=== PATIENT | female | born 1960 | race Caucasian/White ===

== ENCOUNTER 2017-03-03 15:00 | Outpatient (CLI) | payer MEDICARE ==
--- NOTE | 2017-03-03 15:40 | RAD ---
AP AND LATERAL AND FLEXION AND EXTENSION VIEWS LUMBAR SPINE: HISTORY: Spondylosis, M47.15. FINDINGS: AP, flexion, and extension views lumbar spine are obtained. Images demonstrate disk space height loss with anterior osteophytes at the L1, L2, and L3 levels. No evidence of myriam- or retrolisthesis is seen on flexion or extension views. Vertebral bodies are u nremarkable. IMPRESSION: L1, L2, and L3 changes of spondylosis. Findings not significantly changed since the previous exam 08/13/15. POS: [facility]
--- NOTE | 2017-03-03 16:16 | MRI ---
MRI OF LUMBAR SPINE PERFORMED WITHOUT CONTRAST ENHANCEMENT: HISTORY: Low back pain, pain down both legs. COMPARISON: 08/19/15 study. The vertebral bodies are normal in height. Disk narrowing and Modic-type changes are seen at the L1- 2 and L5-S1 levels. Generalized disk desiccation changes are noted. There is no significant periaor tic adenopathy. T2 hyperintensities within the right kidney are statistically most likely tiny cysts and appear stable. T12-L1: No canal or foraminal stenosis. L1-2: Disk bulge without significant canal or foraminal stenosis. Degenerative facet changes are pr esent. L2-3: Disk bulge with facet hypertrophic changes. Borderline canal narrowing. No foraminal stenosi s. I do not see a definitive disk protrusion at this level. L3-4: Facet and ligamentous hypertrophic changes are seen with some borderline canal narrowing. No foraminal stenosis. L4-5: Degenerative facet ligamentous changes as well as some minimal disk bulge associated with some mild canal narrowing without any significant foraminal stenosis. L5-S1. There is a disk bulge present at this level. There are facet hypertrophic changes with mild bilateral foraminal narrowing. IMPRESSION: Mild bilateral foraminal narrowing at L5-S1. Borderline to minimal canal stenosis at L4-5. POS: [facility]
== END 2017-03-03 15:01 | disposition home or self-care (01) ==
LOC: TBSIIMAG 15:00
PROVIDERS: ATTEND Neurological Surgery
DX: M47.16 Other spondylosis with myelopathy, lumbar region (principal)
CPT/HCPCS: 72110; 72148

== ENCOUNTER 2017-03-24 06:02 | Inpatient (IN) | payer MEDICARE ==
[2017-03-23 13:45] VITALS: BMI 29.9
[2017-03-24] MEDS ORDERED: Fentanyl 100 MCG/2 ML VIAL ONE (06:24)
[2017-03-24] MEDS ORDERED: Sodium Chloride 0.9% 10 ML ONE (06:25)
[2017-03-24] MEDS ORDERED: Thrombin 5000 UNITS/5 ML VIAL ONE (06:25)
[2017-03-24 06:48] LABS: #Eosinphils 0.2 thou/uL (0.0-0.7); #Lymphocytes 1.3 thou/uL (1.20-3.40); #Monocytes 0.5 thou/uL (0.11-0.59); #Neutrophils 1.6 thou/uL (1.40-6.50); %Basophils 1.4 % (0.0-1.0); %Lymphocytes 36.2 % (21.0-51.0); %Monocytes 14.4 % (0.0-10.0); Hemoglobin 13.9 g/dL (12.0-16.0); Mean Corpuscular HGB CONC 32.7 g/dL (32.0-36.0); Mean Corpuscular Hemoglobin 31.2 pg (27.0-31.0); Mean Corpuscular Volume 95.3 fl (81.0-99.0); Mean Platelet Volume 6.5 fL (7.4-10.4); Platelet Count 306 thou/uL (130-400); RBC Distribution Width 11.7 % (11.5-14.5); Red Blood Cell (RBC) Count 4.46 mill/uL (4.20-5.40); White Blood Cell (WBC) Count 3.6 thou/uL (4.8-10.8)
[2017-03-24 07:06] LABS: Anion Gap 10 mmol/L (10-20); BUN (Urea Nitrogen) 16 mg/dL (9.8-20.1); Calc. Creatinine Clearance 107 mL/min (70-130); Calcium 9.7 mg/dL (7.8-10.44); Carbon Dioxide 27 mmol/L (22-29); Chloride 106 mmol/L (98-107); Estimated GFR-MDRD 80; Glucose 99 mg/dL (70-105); Sodium 139 mmol/L (136-145)
[2017-03-24] MEDS ORDERED: CEFAZOLIN/Water 2 GM/20 ML SYRINGE ONE (07:06)
[2017-03-24] MEDS ORDERED: Midazolam HCl 2 mg/2 ml Vial ONE (07:06)
[2017-03-24] MEDS ORDERED: HYDROmorphone 0.5 MG/0.5 ML SYRINGE ONE ×3 (07:56→09:16)
[2017-03-24] MEDS ORDERED: Fentanyl 250 MCG/5 ML VIAL ONE (09:00)
[2017-03-24] MEDS ORDERED: Promethazine HCl 25 MG/ML VIAL ONE (09:06)
--- NOTE | 2017-03-24 11:44 | OP ---
DATE OF SERVICE: 03/24/2017 SURGEON: Salty Lizarraga M.D. WATER POLLUTION CONTROL INSPECTOR: Melia Rahmna PA-C PROCEDURES: Left L5-S1 laminectomy, facetectomy, foraminotomy, diskectomy, posterolateral arthrodesi s, interbody arthrodesis, pedicle screw instrumentation L5-S1, demineralized bone matrix, and local m orselized autograft. PROCEDURE IN DETAIL: The patient was brought into the operating room, intubated. She was rolled in the prone position on gel-filled chest rolls. Incision was made exposing L5 and S1 bilaterally and o ur level was confirmed by x-ray. We performed left L5-S1 laminectomy, facetectomy, debrided the intr avertebral disc, and found it to be too collapsed for placement of intravertebral device. Hence, we did not attempt this. We next placed pedicle screws at L5 and S1 bilaterally using lateral fluorosco pic guidance and the positioning was confirmed with rotational x-ray. Sam was secured between the sc rews, connected by nuts, which were finally tightened. It was then extensively irrigated and immacul ate hemostasis was secured. A combination of demineralized bone matrix and local morselized autograf t was laid over the lateral surfaces for the purpose of arthrodesis. Rods were secured between the s crews, connected by nuts which were finally tightened. Immaculate hemostasis was secured. The wound was extensively irrigated. Vancomycin powder was applied and the wound was closed in anatomic layer s.
[2017-03-24] MEDS ORDERED: ePHEDrine/0.9% NaCl/PF SYRINGE 50 mg/10 ml ONE (14:44)
[2017-03-24] MEDS ORDERED: Ketorolac Tromethamine 30 MG/ML VIAL ONE (14:44)
[2017-03-24] MEDS ORDERED: Ondansetron HCl/PF 4 MG/2 ML Vial ONE (14:44)
[2017-03-24] MEDS ORDERED: Dexamethasone 20 MG/5 ML VIAL ONE (14:44)
[2017-03-24] MEDS ORDERED: Lidocaine 1% PF 5 ML VIAL ONE (14:44)
[2017-03-24] MEDS ORDERED: Metoclopramide HCl 10 MG/2 ML VIAL ONE (14:44)
[2017-03-24] MEDS ORDERED: PROPOFOL 200 MG/20 ML VIAL ONE (14:44)
[2017-03-24] MEDS ORDERED: Succinylcholine Chloride 20 MG/ML 10 ml SYRINGE FS ONE (14:44)
[2017-03-24] MEDS ORDERED: Glycopyrrolate 0.2 MG/ML 5 ML SYRINGE ONE (14:44)
--- NOTE | 2017-04-21 18:34 | EKG ---
Test Reason : PREOP Blood Pressure : / mmHG Vent. Rate : 053 BPM Atrial Rate : 053 BPM P-R Int : 158 ms QRS Dur : 078 ms QT Int : 414 ms P-R-T Axes : 050 -38 -01 degrees QTc Int : 388 ms Sinus bradycardia Left axis deviation Abnormal ECG When compared with ECG of 20-OCT-2015 23:30, QT has shortened Confirmed by DR. Precious MASCORRO ([id number]) on 04/21/2017 6:34:11 PM Referred By: LA Confirmed By:DR. Precious MASCORRO
== END 2017-03-24 11:00 | disposition home or self-care (01) | DRG 460 ==
LOC: SURG A 06:02
PROVIDERS: ADMIT Neurological Surgery; ATTEND Neurological Surgery
PROC: 0SG307J Fusion of Lumbosacral Joint with Autologous Tissue Substitute, Posterior Approach, Anterior Column, Open Approach (ICD-10-PCS; principal; 2017-03-24)
PROC: 0SB40ZZ Excision of Lumbosacral Disc, Open Approach (ICD-10-PCS; 2017-03-24)
DX: M54.16 Radiculopathy, lumbar region (principal); F17.210 Nicotine dependence, cigarettes, uncomplicated; M51.36 Other intervertebral disc degeneration, lumbar region; F31.9 Bipolar disorder, unspecified
CPT/HCPCS: 36415; 76001; 80048; 85025; 93005; 93010; 96374; A4216; C1713; C1768; J0131; J1100; J1170; J1885; J2001; J2250; J2405; J2550; J2704; J2765; J3010; J3370; J3490

== ENCOUNTER 2017-04-07 15:37 | Outpatient (CLI) | payer MEDICARE ==
--- NOTE | 2017-04-07 16:43 | RAD ---
LUMBAR SPINE TWO VIEW 04/07/17 HISTORY: Surgery followup. COMPARISON: Lumbar spine radiograph 03/03/17. FINDINGS: There is new posterior spinal fusion hardware at L5-S1. No evidence for hardware complication. No sig nificant listhesis. No acute fracture or malalignment. IMPRESSION: Satisfactory appearance of posterior fusion L5-S1 hardware. POS: [facility]
== END 2017-04-07 15:38 | disposition home or self-care (01) ==
LOC: TBSIIMAG 15:37
PROVIDERS: ATTEND Physician Assistant
DX: M54.9 Dorsalgia, unspecified (principal); Z98.1 Arthrodesis status
CPT/HCPCS: 72100

== ENCOUNTER 2017-07-19 07:05 | Day surgery (SDC) | payer MEDICARE ==
[2017-07-18 14:10] VITALS: BMI 29.9
[2017-07-19 07:51] VITALS: BP 125/87; TEMP 97.8
--- NOTE | 2017-07-19 10:06 | RAD ---
CERVICAL MYELOGRAM: History Cervical radiculopathy. Previous cervical fusion. COMPARISON: None. EXPOSURE: 1.1 minutes. 765.9 mGy*^m2. FINDINGS: Cervical spine ware server radiograph demonstrates an anterior fusion plate with a transvertebral body scre w at C5, C6, and C7. Disk prosthesis at C5-C6 and C6-C7. Anterolisthesis of C4 upon C5. No prevert ebral soft tissue swelling. There are degenerative changes in the left facet at multiple levels best demonstrated on the AP projection. Successful lumbar puncture for intrathecal contrast administration. A total of 8 cc of Isovue 300M c ontrast was administered intrathecally. The patient tolerated the procedure well. No immediate or p ostprocedure complication. TECHNIQUE: Consent was obtained to perform a lumbar puncture for intrathecal contrast administration. The patie nt's back was evaluated. The L1-L2 level was deemed appropriate. The skin was prepped and draped in sterile fashion. 1% Lidocaine, buffered with sodium bicarbonate, was used for local anesthesia. Un diana fluoroscopic guidance, a 22-gauge spinal needle was advanced to the CSF space. A total of 8 cc o f Isovue-M300 contrast was administered intrathecally. The patient tolerated the procedure well. No immediate or postprocedure compilations. IMPRESSION: Successful lumbar puncture for intrathecal contrast administration. Please refer to post-myelogram c ervical spine CT for further details. POS: [facility]
--- NOTE | 2017-07-19 10:14 | CT ---
POST MYELOGRAM CERVICAL SPINE CT: HISTORY: Cervical radiculopathy. Cervical fusion. COMPARISON: None. TECHNIQUE: Post myelogram cervical spine CT is performed in the axial plane. Reformatted images are submitted f or interpretation. FINDINGS: Anterior fusion changes at C5, C6, and C7. No perihardware lucency involving the screws at C5, C6, a nd C7. The anterior fusion plate is flush against the C5 through C7 vertebral bodies. Prostheses at the C5-C6 and C6-C7 disk spaces. There is 3 mm of anterolisthesis of C3 upon C4. There is 2 mm of anterolisthesis of C4 upon C5. The re is no prevertebral soft tissue swelling. The visualized soft tissue neck structures are unremarka ble. No masses in the oral cavity. Symmetric attenuation of the parotid and submandibular glands. The sternocleidomastoid muscle is unr emarkable. No evidence of lymphadenopathy by size criteria. Cervical spine vertebral body height is maintained. No fracture. The lateral masses of C1 and C2 ar ticulate appropriately. The odontoid process is intact. The upper mediastinum and lung apices are unremarkable. C2-C3: No significant central canal stenosis. The neural foramina are patent bilaterally. C3-C4: No significant central canal stenosis. The right and left neural foramina are patent. C4-C5: No significant disk osteophyte complex. No significant central canal stenosis. The foramina are patent. C5-C6: No significant central canal stenosis. Minimal bilateral foraminal narrowing. C6-C7: No significant central canal stenosis. Mild bilateral foraminal narrowing. C7-T1: No significant central canal stenosis. Bilaterally, the neural foramina are patent. IMPRESSION: 1. Cervical fusion changes, as described above. No evidence of perihardware lucency. 2. Grade 1 anterolisthesis of C3 upon C4 and C4 upon C5. 3. No evidence of high grade central canal stenosis or high grade foraminal narrowing. POS: [facility]
[2017-07-19] MEDS ORDERED: Iopamidol-M 300 61% 15 ML VIAL ONE (15:08)
== END 2017-07-19 09:55 | disposition home or self-care (01) ==
LOC: RAD 07:05
PROVIDERS: ATTEND Neurological Surgery
PROC: B00B1ZZ Plain Radiography of Spinal Cord using Low Osmolar Contrast (ICD-10-PCS; principal; 2017-07-19)
DX: M54.12 Radiculopathy, cervical region (principal); Z91.018 Allergy to other foods; Z91.013 Allergy to seafood
CPT/HCPCS: 62302; 72126

== ENCOUNTER 2017-08-15 08:22 | Inpatient (IN) | payer MEDICARE ==
[2017-08-12 11:23] VITALS: BMI 29.9
[2017-08-15] MEDS ORDERED: CEFAZOLIN/Water 2 GM/20 ML SYRINGE ONE (09:45)
[2017-08-15] MEDS ORDERED: Midazolam HCl 2 mg/2 ml Vial ONE ×2 (09:46→10:00)
[2017-08-15 09:52] LABS: Hemoglobin 14.7 g/dL (12.0-16.0); Mean Corpuscular Hemoglobin 31.4 pg (27.0-31.0); Mean Corpuscular Volume 92.1 fl (81.0-99.0); Mean Platelet Volume 5.9 fL (7.4-10.4); Platelet Count 276 thou/uL (130-400); RBC Distribution Width 11.7 % (11.5-14.5); Red Blood Cell (RBC) Count 4.68 mill/uL (4.20-5.40); White Blood Cell (WBC) Count 3.5 thou/uL (4.8-10.8)
[2017-08-15] MEDS ORDERED: Fentanyl 250 MCG/5 ML VIAL ONE (10:00)
[2017-08-15] MEDS ORDERED: Bacitracin Zinc Ointment 30 gm TUBE ONE (10:04)
[2017-08-15] MEDS ORDERED: Sodium Chloride 0.9% 10 ML ONE (10:04)
[2017-08-15 10:18] LABS: Anion Gap 13 mmol/L (10-20); BUN (Urea Nitrogen) 11 mg/dL (9.8-20.1); Calc. Creatinine Clearance 108 mL/min (70-130); Calcium 9.3 mg/dL (7.8-10.44); Carbon Dioxide 22 mmol/L (22-29); Chloride 109 mmol/L (98-107); Estimated GFR-MDRD 81; Glucose 92 mg/dL (70-105); Potassium 3.9 mmol/L (3.5-5.1); Sodium 140 mmol/L (136-145)
--- NOTE | 2017-08-15 13:03 | OP ---
DATE OF PROCEDURE: 08/15/2017 SURGEON: Salty Lizarraga M.D. PONY ROLL FINISHER: Ramirez Interiano PROCEDURE: Removal of hardware C5-C7, exploration of spinal fusion C5-C7, anterior cervical discecto my C4-5, anterior titanium instrumentation C4 through C7, intervertebral device biomechanical, local morselized autograft, demineralized bone matrix C4-5. Posterior approach C4 through C7 posterolateral arthrodesis, lateral mass screw instrumentation, umm neralized bone matrix, local morselized autograft C4-C7. PROCEDURE IN DETAIL: The patient was brought into the operating room and intubated. She was positio serafin supine in modest extension on a gel-filled donut. The previous incision was reopened. The previ ous plate was identified and removed. The spinal fusion was explored and did not seem to be solid. We next placed distraction across C4-5 removed the intravertebral disc entirely for decompression and prepared the bony endplates for the purpose of arthrodesis. An appropriately sized intravertebral b iomechanical PEEK device was brought into the field, filled with demineralized bone matrix, local mor selized autograft, and tapped into place securely at C4-5. Next, an anterior plate was brought in th e field and secured to C4, C5, C6, and C7 using 2 fixed 14-mm screws at each level. The wound was ex tensively irrigated, immaculate hemostasis was secured, and the wound was closed in anatomic layers o al a drain. The patient was then rolled in the prone position on gel-filled chest rolls with the head fixed in ne utral position in the allie headholder. A midline incision was made exposing C4 through C7 and our level was confirmed by x-ray. We placed right C4, C5, C6 and C7 lateral mass screws connected them b y a long ramirez, secured by nuts which were tightened. The wound was extensively irrigated, immaculate hemostasis was secured. The left laminar surfaces were prepared for the purpose of arthrodesis and a combination of demineralized bone matrix, local morselized autograft was laid over these surfaces fo r the purpose of arthrodesis. Vancomycin powder was applied and the wound was then closed in anatomi c layers.
[2017-08-15] MEDS ORDERED: HYDROmorphone 0.5 MG/0.5 ML SYRINGE ONE ×2 (13:09→14:00)
[2017-08-15] MEDS ORDERED: Ketorolac Tromethamine 30 MG/ML VIAL ONE (13:20)
[2017-08-15] MEDS ORDERED: Fentanyl 100 MCG/2 ML VIAL ONE ×2 (13:20→13:47)
[2017-08-15] MEDS ORDERED: Ondansetron HCl/PF 4 MG/2 ML Vial IVP PRN ×2 (13:21→15:20)
[2017-08-15] MEDS ORDERED: Promethazine HCl 25 MG/ML VIAL SLOW IVP PRN (13:21)
[2017-08-15] MEDS ORDERED: Promethazine HCl 25 MG/ML VIAL IM PRN ×2 (13:21→15:20)
[2017-08-15] MEDS ORDERED: HYDROmorphone 2 MG/ML VIAL SLOW IVP PRN (13:21)
[2017-08-15] MEDS ORDERED: Dexamethasone 20 MG/5 ML VIAL ONE (13:32)
[2017-08-15] MEDS ORDERED: Glycopyrrolate 0.2 MG/ML 5 ML SYRINGE ONE (13:32)
[2017-08-15] MEDS ORDERED: Lidocaine 1% PF 5 ML VIAL ONE (13:32)
[2017-08-15] MEDS ORDERED: PHENYLEPHRINE-NS 100 MCG/ML 10 ML SYRINGE ONE (13:32)
[2017-08-15] MEDS ORDERED: PROPOFOL 200 MG/20 ML VIAL ONE (13:32)
[2017-08-15] MEDS ORDERED: Ondansetron HCl/PF 4 MG/2 ML Vial ONE (13:32)
[2017-08-15] MEDS ORDERED: Promethazine HCl 12.5 MG SUPP PR PRN (15:20)
[2017-08-15] MEDS ORDERED: Acetaminophen 325 MG TAB PO PRN (15:20)
[2017-08-15] MEDS ORDERED: diphenhydrAMINE 50 MG/ML VIAL IVP PRN (15:20)
[2017-08-15] MEDS ORDERED: Promethazine 25 MG TAB PO PRN (15:20)
[2017-08-15] MEDS ORDERED: Acetaminophen 650 MG Suppository PR PRN (15:20)
[2017-08-15] MEDS ORDERED: HYDROcodone/Acetaminophen 10/325 mg Tablet PO PRN ×2 (15:20→16:07)
[2017-08-15] MEDS ORDERED: diphenhydrAMINE 25 MG CAP PO PRN (15:20)
[2017-08-15] MEDS ORDERED: Mag-Al 1200 mg/1200 mg/30 ML UDCUP PO PRN (15:20)
[2017-08-15] MEDS ORDERED: Milk Of Magnesia 30 ML UDCUP PO PRN (15:20)
[2017-08-15] MEDS: tiZANidine HCl 4 MG TAB PO PRN (15:47)
[2017-08-15] MEDS: Sodium Chloride 0.9% 1,000 ML IV SCH (15:47)
[2017-08-15] MEDS ORDERED: Mometasone/Formoterol 120 PUFF INHALER INH PRN (15:52)
[2017-08-15] MEDS ORDERED: SUMAtriptan Succinate 50 MG TAB PO PRN (15:52)
[2017-08-15] MEDS ORDERED: PROVENTIL INHALER 6.7 G (200 INHALATIONS) INH PRN (15:59)
[2017-08-15] MEDS: Bupropion 150 MG SR TAB PO SCH ×2 (16:41→20:07)
[2017-08-15] MEDS: clonazePAM 0.5 MG TAB PO SCH ×2 (16:41→20:07)
[2017-08-15] MEDS: CEFAZOLIN/Water 2 GM/20 ML SYRINGE SLOW IVP SCH (19:41)
[2017-08-15] MEDS: lamoTRIgine 100 MG TAB PO SCH (20:07)
[2017-08-15] MEDS: Cyclobenzaprine 10 MG TAB PO PRN (22:31)
[2017-08-16] MEDS: HYDROcodone/Acetaminophen 10/325 mg Tablet PO PRN ×6 (00:04→23:47)
[2017-08-16] MEDS: CEFAZOLIN/Water 2 GM/20 ML SYRINGE SLOW IVP SCH ×3 (01:15→17:32)
[2017-08-16] MEDS: Sodium Chloride 0.9% 1,000 ML IV SCH ×2 (04:31→17:31)
[2017-08-16] MEDS: tiZANidine HCl 4 MG TAB PO PRN (06:45)
--- NOTE | 2017-08-16 07:08 | PRG ---
DATE OF SERVICE: 08/16/2017 The patient is postop day #1 for removal of hardware, C4-C5 ACDF, posterior C4-C7 fusion. Overnight, the patient had difficulty with pain control. She reports she was given two 10/325 [employer] p.o. this morning and this has helped significantly. She is also getting a muscle relaxer and p.r.n. IV morphine. She has no focal motor weakness on my exam. No dysesthesias or sensation. Her dressi ngs are dry. FELICITA drain anteriorly put out 27 mL last night. We will remove it this morning. We will plan to continue with pain control and work on mobilizing the patient as well as advancing her diet.
[2017-08-16] MEDS: Venlafaxine HCl XR 75 MG CAP PO SCH (08:54)
[2017-08-16] MEDS: clonazePAM 0.5 MG TAB PO SCH ×3 (08:54→21:12)
[2017-08-16] MEDS: Loratadine 10 MG TAB PO SCH (08:54)
[2017-08-16] MEDS: Bupropion 150 MG SR TAB PO SCH ×3 (08:54→21:16)
[2017-08-16] MEDS: Fluticasone Propionate Nasal Spray 16 gm Bottle NASAL SCH (10:03)
[2017-08-16] MEDS: lamoTRIgine 100 MG TAB PO SCH ×2 (10:03→21:12)
[2017-08-16] MEDS: Cyclobenzaprine 10 MG TAB PO PRN ×2 (10:59→21:12)
[2017-08-16] MEDS ORDERED: Morphine 4 MG/ML VIAL IV PRN ×2 (12:44→12:45)
[2017-08-17] MEDS: CEFAZOLIN/Water 2 GM/20 ML SYRINGE SLOW IVP SCH ×3 (02:13→17:11)
[2017-08-17] MEDS: HYDROcodone/Acetaminophen 10/325 mg Tablet PO PRN ×3 (05:28→18:06)
[2017-08-17] MEDS: tiZANidine HCl 4 MG TAB PO PRN ×3 (05:29→18:07)
[2017-08-17] MEDS: Sodium Chloride 0.9% 1,000 ML IV SCH ×2 (06:47→19:53)
[2017-08-17] MEDS ORDERED: Polyethylene Glycol 3350 17 GM Packet PO PRN (08:45)
[2017-08-17] MEDS: lamoTRIgine 100 MG TAB PO SCH ×2 (09:05→20:56)
[2017-08-17] MEDS: clonazePAM 0.5 MG TAB PO SCH ×3 (09:05→20:57)
[2017-08-17] MEDS: Bupropion 150 MG SR TAB PO SCH ×3 (09:05→20:56)
[2017-08-17] MEDS: Loratadine 10 MG TAB PO SCH (09:05)
[2017-08-17] MEDS: Venlafaxine HCl XR 75 MG CAP PO SCH (09:05)
[2017-08-17] MEDS: Fluticasone Propionate Nasal Spray 16 gm Bottle NASAL SCH (09:07)
--- NOTE | 2017-08-17 11:25 | PRG ---
DATE OF SERVICE: 08/17/2017 The patient is postoperative day #2 anterior and posterior decompression and fusion for cervical sten osis. She continues to have pain control issues, but this is gradually improving in time. She has b een tolerating a regular diet, voiding appropriately and ambulated some in the department. She is co mplaining of constipation issues and I will add MiraLax to her regimen. At this time, we will plan t o continue to monitor and work on pain control additional night in the hospital, but I anticipate rocky t the patient will be discharged home in the next day or two.
[2017-08-18] MEDS: tiZANidine HCl 4 MG TAB PO PRN (00:03)
[2017-08-18] MEDS: HYDROcodone/Acetaminophen 10/325 mg Tablet PO PRN ×2 (00:03→07:29)
[2017-08-18] MEDS: CEFAZOLIN/Water 2 GM/20 ML SYRINGE SLOW IVP SCH ×2 (02:18→10:00)
[2017-08-18] MEDS: Venlafaxine HCl XR 75 MG CAP PO SCH (09:56)
[2017-08-18] MEDS: Fluticasone Propionate Nasal Spray 16 gm Bottle NASAL SCH (09:57)
[2017-08-18] MEDS: Bupropion 150 MG SR TAB PO SCH (09:57)
[2017-08-18] MEDS: Loratadine 10 MG TAB PO SCH (09:57)
[2017-08-18] MEDS: clonazePAM 0.5 MG TAB PO SCH (09:57)
[2017-08-18] MEDS: lamoTRIgine 100 MG TAB PO SCH (09:57)
[2017-08-18] MEDS: Sodium Chloride 0.9% 1,000 ML IV SCH (09:59)
[2017-08-18 11:26] VITALS: BP 119/80; TEMP 98.7
--- NOTE | 2017-08-18 15:00 | DIS ---
DATE OF ADMISSION: 08/15/2017 DATE OF DISCHARGE: 08/18/2017 ADMISSION DIAGNOSES: Cervical spondylosis with myelopathy and radiculopathy. DISCHARGE DIAGNOSES: Cervical spondylosis with myelopathy and radiculopathy. SURGICAL PROCEDURE: Anterior and posterior cervical diskectomy and fusion from C4 to C7. HOSPITAL COURSE: The patient was admitted on 08/15/2017 for the purpose of undergoing the above-name d procedure. She tolerated the procedure well and had an inordinate amount of initial postoperative pain with the patient on pain medication for quite some time preoperatively. We were able to control her pain with the use of morphine and intermittent Verdi. She had FELICITA drains placed intraoperatively and these were removed by the second postoperative day. On third postoperative day, the patient was ambulating well, was tolerating diet. She continued to have discomfort primarily at the posterior a spect of the cervical spine, which seen more muscular incisional in nature. Her examination overall maintained stability. The patient and her were doing quite well and felt like she could be d ischarged home on 08/18/2017. The patient was tolerating diet and activity and voiding without diffi culty. Pain medication was tolerated by mouth. The patient will be sent home on Verdi, Zanaflex, an d antibiotic. All postop instructions were given. The patient expressed understanding. She will be discharged home today to follow up with us in about 2 weeks.
== END 2017-08-18 12:28 | disposition home or self-care (01) | DRG 455 ==
LOC: SURG B 08:22
PROVIDERS: ADMIT Neurological Surgery; ATTEND Neurological Surgery
PROC: 0RG20A0 Fusion of 2 or more Cervical Vertebral Joints with Interbody Fusion Device, Anterior Approach, Anterior Column, Open Approach (ICD-10-PCS; principal; 2017-08-15)
PROC: 0RG2071 Fusion of 2 or more Cervical Vertebral Joints with Autologous Tissue Substitute, Posterior Approach, Posterior Column, Open Approach (ICD-10-PCS; 2017-08-15)
PROC: 0RB30ZZ Excision of Cervical Vertebral Disc, Open Approach (ICD-10-PCS; 2017-08-15)
PROC: 0PP304Z Removal of Internal Fixation Device from Cervical Vertebra, Open Approach (ICD-10-PCS; 2017-08-15)
PROC: 3E0U0GB Introduction of Recombinant Bone Morphogenetic Protein into Joints, Open Approach (ICD-10-PCS; 2017-08-15)
DX: M96.0 Pseudarthrosis after fusion or arthrodesis (principal); M47.22 Other spondylosis with radiculopathy, cervical region; G89.18 Other acute postprocedural pain; Y83.8 Other surgical procedures as the cause of abnormal reaction of the patient, or of later complication, without mention of misadventure at the time of the procedure; F32.9 Major depressive disorder, single episode, unspecified; F41.9 Anxiety disorder, unspecified
CPT/HCPCS: 36415; 76001; 80048; 85027; 93005; 93010; A4216; C1713; C1768; C1776; G8978-GP-CJ; G8979-GP-CI; J0131; J1100; J1170; J1885; J2001; J2250; J2270; J2405; J2704; J3010; J3370; J3490

== ENCOUNTER 2017-08-30 10:28 | Emergency (ER) | payer MEDICARE ==
[2017-08-30] MEDS ORDERED: HYDROcodone/Acetaminophen 10/325 mg Tablet ONE (12:15)
[2017-08-30] MEDS ORDERED: Ondansetron ODT 4 MG TAB ONE (12:16)
--- NOTE | 2017-08-30 14:03 | RAD ---
THREE VIEWS CERVICAL SPINE: DATE: 08/30/17. HISTORY: Neck and right shoulder pain for 2 days. History of neck surgery. COMPARISON: CT cervical spine on 07/19/17. FINDINGS: Postsurgical changes of the cervical spine are noted with interval revision of postsurgical changes r elated to the anterior cervical fusion noted on the prior CT exam and there is now an anterior plate and screws transfixing the C4, C5, C6, and C7 levels. There is also evidence of posterior fusion uni laterally on the right at this level with pedicular screws and transfixed by posterior ramirez. Intradis beryl prosthesis at the C4-5 level is present. There is stable slight anterolisthesis of C2 on C3 and to a slightly greater degree at C4-5 level als o noted on prior CT exam. Skin clips are seen posterior to the cervical spine. The cervicothoracic junction is obscured on thi s exam due to overlying structures. Prevertebral soft tissues are within normal limits. IMPRESSION: 1. Interval revision of postsurgical changes involving the cervical spine with evidence of anterior as well as posterior fusion of the C4 through C7 levels. 2. Stable anterolisthesis of C2 on C3 and C3 on C4. POS: [facility]
== END 2017-08-30 14:10 | disposition home or self-care (01) ==
LOC: ERS 10:28
DX: G89.18 Other acute postprocedural pain (principal); K21.9 Gastro-esophageal reflux disease without esophagitis; G43.909 Migraine, unspecified, not intractable, without status migrainosus; F31.9 Bipolar disorder, unspecified; F41.9 Anxiety disorder, unspecified; K58.9 Irritable bowel syndrome, unspecified; Z87.891 Personal history of nicotine dependence; Z79.899 Other long term (current) drug therapy
CPT/HCPCS: 72040; 96372; J2270; Q0162

== ENCOUNTER 2018-01-02 10:14 | Outpatient (CLI) | payer OTHER | END 2018-01-02 10:15 | disposition home or self-care (01) | LOC: DTY/OP 10:14 | PROVIDERS: ATTEND Surgery | DX: E66.01 Morbid (severe) obesity due to excess calories (principal) | CPT/HCPCS: 97802 ==

== ENCOUNTER 2018-01-04 11:30 | Inpatient (IN) | payer OTHER ==
[2018-01-16] MEDS ORDERED: Heparin 5,000 UNITS/ML VIAL ONE (10:38)
[2018-01-16] MEDS ORDERED: CEFAZOLIN 2 GM/50 ML BAG ONE (10:39)
[2018-01-16] MEDS ORDERED: Bupivacaine/Epinephrine 0.25% 30 ML VIAL ONE ×2 (11:34)
[2018-01-16] MEDS ORDERED: Fentanyl 250 MCG/5 ML VIAL ONE (11:42)
[2018-01-16] MEDS ORDERED: Midazolam HCl 2 mg/2 ml Vial ONE (12:17)
[2018-01-16] MEDS ORDERED: Promethazine HCl 25 MG/ML VIAL SLOW IVP PRN ×2 (13:57→15:18)
[2018-01-16] MEDS ORDERED: Promethazine HCl 25 MG/ML VIAL IM PRN ×4 (13:57→17:21)
[2018-01-16] MEDS ORDERED: Ondansetron HCl/PF 4 MG/2 ML Vial IVP PRN ×2 (13:57→15:18)
[2018-01-16] MEDS ORDERED: Fentanyl 100 MCG/2 ML VIAL ONE (14:23)
[2018-01-16] MEDS ORDERED: Promethazine HCl 25 MG/ML VIAL ONE (14:24)
[2018-01-16] MEDS ORDERED: HYDROmorphone 2 MG/ML VIAL ONE (14:49)
[2018-01-16] MEDS ORDERED: Lidocaine 1% PF 5 ML VIAL ONE (15:04)
[2018-01-16] MEDS ORDERED: PHENYLEPHRINE-NS 100 MCG/ML 10 ML SYRINGE ONE (15:04)
[2018-01-16] MEDS ORDERED: Glycopyrrolate 0.2 MG/ML 5 ML SYRINGE ONE (15:04)
[2018-01-16] MEDS ORDERED: Ondansetron PF 4 MG/2 ML Vial ONE (15:04)
[2018-01-16] MEDS ORDERED: PROPOFOL 200 MG/20 ML VIAL ONE (15:04)
[2018-01-16] MEDS ORDERED: HYDROmorphone 2 MG/ML VIAL SLOW IVP PRN (15:18)
[2018-01-16] MEDS ORDERED: Ondansetron PF 4 MG/2 ML Vial IVP PRN ×2 (15:18→17:21)
[2018-01-16] MEDS ORDERED: fentaNYL Citrate/PF 2,000 MCG in Sodium Chloride 0.9% 60 ML IV PRN (15:18)
[2018-01-16] MEDS ORDERED: Naloxone HCl 0.4 mg/ml Vial IV PRN (15:18)
[2018-01-16] MEDS ORDERED: diphenhydrAMINE 50 MG/ML VIAL IVP PRN ×2 (15:18→17:21)
[2018-01-16] MEDS ORDERED: Zolpidem Tartrate 5 MG TAB PO PRN (15:18)
[2018-01-16] MEDS ORDERED: diphenhydrAMINE 50 MG/ML VIAL IM PRN (15:18)
[2018-01-16] MEDS ORDERED: hydrALAZINE 20 MG/ML VIAL ONE (15:19)
[2018-01-16] MEDS ORDERED: Communication Order-Pharmacy FS SCH (15:30)
[2018-01-16] MEDS ORDERED: Dextrose 50% Abboject 50 ML SYRINGE SLOW IVP PRN (17:21)
[2018-01-16] MEDS ORDERED: Hydrocodone-Acetamin 15 ML UDCUP PO PRN (17:21)
[2018-01-16] MEDS ORDERED: PROVENTIL INHALER 6.7 G (200 INHALATIONS) INH PRN ×2 (17:21→20:37)
[2018-01-16] MEDS ORDERED: Dextrose 5% in Water 1,000 ML IV PRN (17:21)
[2018-01-16] MEDS ORDERED: Mometasone/Formoterol 120 PUFF INHALER INH PRN ×2 (17:21→20:42)
[2018-01-16] MEDS ORDERED: hydrALAZINE 20 MG/ML VIAL SLOW IVP PRN (17:21)
[2018-01-16] MEDS: Acetaminophen 1,000 MG in Premix Bag 1 BAG IVPB SCH ×2 (18:36→23:12)
[2018-01-16] MEDS: diphenhydrAMINE 25 MG CAP PO PRN (19:51)
[2018-01-16] MEDS ORDERED: Simethicone Chewable 80 MG TAB PO PRN (20:33)
[2018-01-16] MEDS ORDERED: SUMAtriptan Succinate 50 MG TAB PO PRN (20:42)
[2018-01-16] MEDS ORDERED: lamoTRIgine 100 MG TAB PO SCH (21:00)
[2018-01-16] MEDS ORDERED: Enoxaparin Sodium 40 MG/0.4 ML SYRINGE SC SCH (21:00)
[2018-01-16] MEDS ORDERED: Loratadine 10 MG TAB PO SCH (21:00)
[2018-01-16] MEDS: clonazePAM 0.5 MG TAB PO SCH (21:17)
[2018-01-16] MEDS: Bupropion 150 MG SR TAB PO SCH (21:17)
[2018-01-16] MEDS: lamoTRIgine 100 MG TAB PO SCH (21:18)
[2018-01-16] MEDS: D5 1/2 NS w/20 mEq KCL 1,000 ML IV SCH (21:22)
[2018-01-17] MEDS: D5 1/2 NS w/20 mEq KCL 1,000 ML IV SCH (01:09)
[2018-01-17] MEDS: Acetaminophen 1,000 MG in Premix Bag 1 BAG IVPB SCH ×2 (05:06→11:48)
[2018-01-17 06:12] LABS: #Lymphocytes 0.6 thou/uL (1.20-3.40); #Monocytes 0.5 thou/uL (0.11-0.59); #Neutrophils 6.7 thou/uL (1.40-6.50); %Basophils 0.1 % (0.0-1.0); %Eosinophils 0.1 % (0.0-10.0); %Lymphocytes 8.1 % (21.0-51.0); %Monocytes 6.3 % (0.0-10.0); %Neutrophils 85.4 % (42.0-75.0); Hemoglobin 13.9 g/dL (12.0-16.0); Mean Corpuscular HGB CONC 33.1 g/dL (32.0-36.0); Mean Corpuscular Hemoglobin 31.2 pg (27.0-31.0); Mean Corpuscular Volume 94.3 fL (78.0-98.0); Mean Platelet Volume 6.9 fL (7.4-10.4); Platelet Count 286 thou/uL (130-400); RBC Distribution Width 11.5 % (11.5-14.5); Red Blood Cell (RBC) Count 4.46 mill/uL (4.20-5.40); White Blood Cell (WBC) Count 7.8 thou/uL (4.8-10.8)
[2018-01-17 06:15] LABS: Anion Gap 11 mmol/L (10-20); BUN (Urea Nitrogen) 9 mg/dL (9.8-20.1); Calc. Creatinine Clearance 125 mL/min (70-130); Calcium 8.8 mg/dL (7.8-10.44); Carbon Dioxide 25 mmol/L (22-29); Chloride 103 mmol/L (98-107); Estimated GFR-MDRD Greater than 90; Glucose 145 mg/dL (70-105); Potassium 3.9 mmol/L (3.5-5.1); Sodium 135 mmol/L (136-145)
[2018-01-17 06:36] VITALS: BMI 30.1
[2018-01-17] MEDS: diphenhydrAMINE 25 MG CAP PO PRN (07:42)
[2018-01-17] MEDS: clonazePAM 0.5 MG TAB PO SCH (08:58)
[2018-01-17] MEDS: Bupropion 150 MG SR TAB PO SCH (08:59)
[2018-01-17] MEDS ORDERED: Escitalopram Oxalate 10 mg Tablet PO SCH ×2 (09:00)
[2018-01-17] MEDS ORDERED: Pantoprazole 40 MG VIAL IVP SCH (09:00)
[2018-01-17] MEDS ORDERED: Fluticasone Propionate Nasal Spray 16 gm Bottle NASAL SCH (09:00)
[2018-01-17] MEDS: lamoTRIgine 100 MG TAB PO SCH (11:18)
--- NOTE | 2018-01-17 11:44 | DIS ---
DATE OF ADMISSION: January 16, 2018 DATE OF DISCHARGE: January 17, 2018 ADMITTING DIAGNOSIS: Morbid obesity. DISCHARGE DIAGNOSIS: Morbid obesity. PROCEDURES: Laparoscopic sleeve gastrectomy by Dr. Waldrop without complication. CONDITION AT DISCHARGE: Improved. STAFF: Dr. Waldrop. HOSPITAL COURSE: On postop day #1, the patient is doing well. She is tolerating the liquid diet wit hout difficulty. She is ambulatory. No significant pain, tachycardia, fever. ASSESSMENT: Discharge to home. Follow up with me in 2 weeks. All other education was previously do ne with the bariatric program.
[2018-01-17 11:56] VITALS: BP 118/79; TEMP 97.8
--- NOTE | 2018-01-18 13:31 | OP ---
DATE OF PROCEDURE: 01/16/2018 PREOPERATIVE DIAGNOSIS: Morbid obesity with a body mass index of 34. POSTOPERATIVE DIAGNOSIS: Morbid obesity with a body mass index of 34. PROCEDURE: Laparoscopic sleeve gastrectomy with [place] staple line reinforcements and 38-[place] bougie . SURGEON: Singh Waldrop M.D. ANESTHESIA: General. ESTIMATED BLOOD LOSS: Minimal. COMPLICATIONS: None. SPECIMEN: Stomach. TECHNIQUE: The patient was taken to the operating room and placed supine on the table. After genera l anesthetic was obtained, arms and legs were double-strapped to bariatric table. The abdomen was pr epped and draped in a sterile fashion. Left subcostal 5-mm Optiview trocar was placed in usual fashi on. High-flow pneumoperitoneum was obtained. Left and right abdominal 12-mm ports as well as the [facility] subcostal 5-mm port were placed under direct visualization. A 5-mm incision made at the xiphoid and the Dayana was used to raise the liver off the GE junction. Short gastrics were taken down to a distance of 6 cm proximal to the pylorus all the way to the angle of His. Angle of His, posterior fundus, and left moy was completely dissected. Short gastrics were taken down to a distance of 5 c m proximal to the pylorus. OG tube was removed and 38-bougie was brought in and its tip left in the antrum of the stomach. Multiple loads of an [place] stapling device was used to form the sleeve. Th e first fired up a distance of 6 cm proximal to the pylorus angled up towards the incisura. Multiple loads were then fired up along the incisura, stomach was completely transected at the angle of His. There was larger than normal crural defect that was closed using #1 interrupted Ethibond with the ti e knot system. There was no bleeding on the staple line. All port sites were infiltrated using loca l anesthetic. The stomach was removed from left abdominal incision. This fascial defect was closed using GraNee needle 0 Vicryl tie. Bougie was removed and the EGD scope was passed into the esophagus , stomach, to the level of the duodenum. There was no stricture at the incisura. There was no air l eakage or bleeding through the staple line. The esophageal hiatus in the diaphragm is not too tight nor was the GE junction. EGD scope was used to decompress the stomach, it was pulled and removed. A ll ports were removed under camera visualization, as is the Dayana retractor without damage or ble eding. Pneumoperitoneum was let down. A 4-0 Monocryl and Dermabond were used to close all skin inci sions. The patient was taken to recovery in stable condition. All instrument counts, needle counts, lap counts were correct.
== END 2018-01-17 13:50 | disposition home or self-care (01) | DRG 620 ==
LOC: SURG A 01-16 09:54 → SJJU 01-16 16:54
PROVIDERS: ADMIT Surgery; ATTEND Surgery
PROC: 0DB64Z3 Excision of Stomach, Percutaneous Endoscopic Approach, Vertical (ICD-10-PCS; principal; 2018-01-16)
PROC: 0BQT4ZZ Repair Diaphragm, Percutaneous Endoscopic Approach (ICD-10-PCS; 2018-01-16)
PROC: 0HB7XZZ Excision of Abdomen Skin, External Approach (ICD-10-PCS; 2018-01-16)
DX: E66.01 Morbid (severe) obesity due to excess calories (principal); M47.16 Other spondylosis with myelopathy, lumbar region; K44.9 Diaphragmatic hernia without obstruction or gangrene; Z68.33 Body mass index [BMI] 33.0-33.9, adult; F31.9 Bipolar disorder, unspecified; F41.9 Anxiety disorder, unspecified; L91.8 Other hypertrophic disorders of the skin
CPT/HCPCS: 36415; 80048; 85025; 88304; 88307; 88312; 94760; C9113; J0131; J0360; J1170; J1644; J1650; J2001; J2250; J2405; J2550; J2704; J3010; J7050

== ENCOUNTER 2018-02-28 09:43 | Emergency (ER) | payer MEDICARE ==
[2018-02-28] MEDS ORDERED: Diazepam 5 MG TAB ONE (10:48)
[2018-02-28] MEDS ORDERED: Ketorolac Tromethamine 30 MG/ML VIAL ONE (10:49)
--- NOTE | 2018-02-28 11:52 | CT ---
EXAM: CERVICAL SPINE CT WITHOUT IV CONTRAST: History: 58-year-old female with history of right sided neck pain and muscle spasms for one week. Comparison: 07-19-[address] neck FINDINGS: Again noted are stable anterior cervical fusion changes at C4, C5, C6, and C7. Since the prior study, there are new right sided dorsal facet screws and ramirez fixation changes involving C4, C5, C6, and C7. There does appear to be some minimal lucency around the left C7 dorsal screw. No evidence for new fr acture or dislocation or new malalignment. IMPRESSION: Some minimal lucency around the right C7 dorsal facet screw. No significant malalignment or acute fra cture. POS: [facility]
[2018-02-28 12:02] LABS: ALT (SGPT) 29 U/L (8-55); AST (SGOT) 31 U/L (5-34); Albumin 4.7 g/dL (3.5-5.0); Alkaline Phosphatase 91 U/L (40-150); Anion Gap 13 mmol/L (10-20); BUN (Urea Nitrogen) 9 mg/dL (9.8-20.1); Bilirubin, Total 0.5 mg/dL (0.2-1.2); Calc. Creatinine Clearance 0 mL/min (70-130); Calcium 9.9 mg/dL (7.8-10.44); Carbon Dioxide 23 mmol/L (22-29); Chloride 102 mmol/L (98-107); Estimated GFR-MDRD 79; Globulin 3.3 g/dL (2.4-3.5); Glucose 79 mg/dL (70-105); Potassium 4.3 mmol/L (3.5-5.1)
[2018-02-28 12:06] LABS: Hemoglobin 15.2 g/dL (12.0-16.0); Red Blood Cell (RBC) Count 5.25 mill/uL (4.20-5.40); White Blood Cell (WBC) Count 3.3 thou/uL (4.8-10.8)
[2018-02-28 12:07] LABS: #Eosinphils 0.1 thou/uL (0.0-0.7); #Lymphocytes 1.3 thou/uL (1.20-3.40); #Monocytes 0.4 thou/uL (0.11-0.59); #Neutrophils 1.5 thou/uL (1.40-6.50); %Basophils 0.8 % (0.0-1.0); %Monocytes 12.7 % (0.0-10.0); %Neutrophils 44.4 % (42.0-75.0); Mean Corpuscular HGB CONC 31.3 g/dL (32.0-36.0); Mean Corpuscular Hemoglobin 28.9 pg (27.0-31.0); Mean Corpuscular Volume 92.3 fL (78.0-98.0); Mean Platelet Volume 6.9 fL (7.4-10.4); Platelet Count 345 thou/uL (130-400); RBC Distribution Width 11.4 % (11.5-14.5)
[2018-02-28 12:16] LABS: Sodium 134 mmol/L (136-145)
== END 2018-02-28 14:15 | disposition home or self-care (01) ==
LOC: ERS 09:43
DX: S16.1XXA Strain of muscle, fascia and tendon at neck level, initial encounter (principal); K21.9 Gastro-esophageal reflux disease without esophagitis; G43.909 Migraine, unspecified, not intractable, without status migrainosus; F41.9 Anxiety disorder, unspecified; F31.9 Bipolar disorder, unspecified; Z87.891 Personal history of nicotine dependence; Z79.899 Other long term (current) drug therapy; X50.9XXA Other and unspecified overexertion or strenuous movements or postures, initial encounter
CPT/HCPCS: 72125; 80053; 85025; 96374; J1885

== ENCOUNTER 2018-03-17 05:53 | Emergency (ER) | payer MEDICARE ==
[2018-03-17] MEDS ORDERED: Ondansetron PF 4 MG/2 ML Vial ONE (06:19)
[2018-03-17 06:37] LABS: #Eosinphils 0.2 thou/uL (0.0-0.7); #Lymphocytes 1.2 thou/uL (1.20-3.40); #Monocytes 0.5 thou/uL (0.11-0.59); #Neutrophils 3.5 thou/uL (1.40-6.50); %Basophils 0.8 % (0.0-1.0); %Lymphocytes 22.4 % (21.0-51.0); %Monocytes 9.2 % (0.0-10.0); %Neutrophils 64.5 % (42.0-75.0); Hemoglobin 14.5 g/dL (12.0-16.0); Mean Corpuscular HGB CONC 34.1 g/dL (32.0-36.0); Mean Corpuscular Hemoglobin 31.4 pg (27.0-31.0); Mean Corpuscular Volume 92.1 fL (78.0-98.0); Mean Platelet Volume 6.7 fL (7.4-10.4); Platelet Count 341 thou/uL (130-400); RBC Distribution Width 11.8 % (11.5-14.5); Red Blood Cell (RBC) Count 4.63 mill/uL (4.20-5.40); White Blood Cell (WBC) Count 5.4 thou/uL (4.8-10.8)
[2018-03-17 06:42] LABS: Bilirubin Negative (Negative); Blood, Urine Negative (Negative); Clarity CLEAR (Clear); Glucose, Urine (Dipstick) Negative (Negative); Leukocyte Negative (Negative); Nitrite Negative (Negative); Protein, Urine (Dipstick) Negative (Neg-Trace); Specific Gravity, Urine 1.012 (1.002-1.036); Urobilinogen 0.2 mg/dL (0.2-1.0); pH, Urine 5.5 (5.0-9.0)
[2018-03-17 07:00] LABS: ALT (SGPT) 29 U/L (8-55); AST (SGOT) 36 U/L (5-34); Albumin 4.6 g/dL (3.5-5.0); Alkaline Phosphatase 81 U/L (40-150); Anion Gap 16 mmol/L (10-20); BUN (Urea Nitrogen) 15 mg/dL (9.8-20.1); Bilirubin, Total 0.3 mg/dL (0.2-1.2); Calc. Creatinine Clearance 0 mL/min (70-130); Calcium 9.7 mg/dL (7.8-10.44); Carbon Dioxide 24 mmol/L (22-29); Chloride 107 mmol/L (98-107); Estimated GFR-MDRD 82; Globulin 3.4 g/dL (2.4-3.5); Glucose 102 mg/dL (70-105); Potassium 4.5 mmol/L (3.5-5.1); Sodium 142 mmol/L (136-145)
[2018-03-17] MEDS ORDERED: manNITOL 20% 0 ML ONE (08:54)
== END 2018-03-17 08:09 | disposition home or self-care (01) ==
LOC: ERS 05:53
DX: E86.0 Dehydration (principal); K21.9 Gastro-esophageal reflux disease without esophagitis; K58.9 Irritable bowel syndrome, unspecified; G43.909 Migraine, unspecified, not intractable, without status migrainosus; F41.9 Anxiety disorder, unspecified; F31.9 Bipolar disorder, unspecified; F17.210 Nicotine dependence, cigarettes, uncomplicated; Z79.899 Other long term (current) drug therapy; Z79.01 Long term (current) use of anticoagulants
CPT/HCPCS: 80053; 81003; 85025; 96361; 96374; J2405; J7799

== ENCOUNTER 2018-04-01 19:46 | Emergency (ER) | payer MEDICARE ==
[2018-04-01] MEDS ORDERED: Ketorolac Tromethamine 30 MG/ML VIAL ONE (20:35)
== END 2018-04-01 20:56 | disposition home or self-care (01) ==
LOC: ERS 19:46
DX: R09.1 Pleurisy (principal); K21.9 Gastro-esophageal reflux disease without esophagitis; K58.9 Irritable bowel syndrome, unspecified; G43.909 Migraine, unspecified, not intractable, without status migrainosus; F41.9 Anxiety disorder, unspecified; F31.9 Bipolar disorder, unspecified; F17.210 Nicotine dependence, cigarettes, uncomplicated; Z79.899 Other long term (current) drug therapy; Z79.01 Long term (current) use of anticoagulants
CPT/HCPCS: 96372; J1885

== ENCOUNTER 2018-04-28 02:57 | Emergency (ER) | payer MEDICARE ==
[2018-04-28 03:30] LABS: #Basophils 0.1 thou/uL (0.0-0.2); #Lymphocytes 0.3 thou/uL (1.20-3.40); #Monocytes 0.1 thou/uL (0.11-0.59); %Basophils 1.3 % (0.0-1.0); %Eosinophils 0.2 % (0.0-10.0); %Lymphocytes 7.7 % (21.0-51.0); %Monocytes 1.1 % (0.0-10.0); %Neutrophils 89.7 % (42.0-75.0); Hemoglobin 14.4 g/dL (12.0-16.0); Mean Corpuscular Hemoglobin 31.2 pg (27.0-31.0); Mean Corpuscular Volume 94.5 fL (78.0-98.0); Mean Platelet Volume 6.8 fL (7.4-10.4); Platelet Count 404 thou/uL (130-400); RBC Distribution Width 11.8 % (11.5-14.5); Red Blood Cell (RBC) Count 4.64 mill/uL (4.20-5.40); White Blood Cell (WBC) Count 4.4 thou/uL (4.8-10.8)
[2018-04-28 03:39] LABS: Bilirubin Negative (Negative); Blood, Urine Negative (Negative); Clarity CLEAR (Clear); Glucose, Urine (Dipstick) Negative (Negative); Leukocyte Negative (Negative); Nitrite Negative (Negative); Protein, Urine (Dipstick) Negative (Neg-Trace); Specific Gravity, Urine 1.011 (1.002-1.036); Urobilinogen 0.2 mg/dL (0.2-1.0)
[2018-04-28 03:49] LABS: Amphetamine Not Detected (NotDetected); Barbiturates Screen Not Detected (NotDetected); Benzodiazepine Screen Not Detected (NotDetected); Cocaine Metabolite Screen Not Detected (NotDetected); Medtox Control Line Valid? VALID (VALID); Medtox Reader # READER 4; Methadone Not Detected (NotDetected); Methamphetamine Not Detected (NotDetected); Opiate Screen Detected (NotDetected); Oxycodone Screen Not Detected (NotDetected); Phencyclidine (PCP) Not Detected (NotDetected); THC/Cannabinoid Screen Not Detected (NotDetected); Tricyclic Screen Not Detected (NotDetected)
[2018-04-28 03:52] LABS: ALT (SGPT) 65 U/L (8-55); AST (SGOT) 44 U/L (5-34); Albumin 4.5 g/dL (3.5-5.0); Alcohol Less than 10 mg/dL (Less than 10); Alkaline Phosphatase 90 U/L (40-150); Anion Gap 15 mmol/L (10-20); BUN (Urea Nitrogen) 7 mg/dL (9.8-20.1); Bilirubin, Total 0.4 mg/dL (0.2-1.2); CK (CPK) 635 U/L (29-168); Calc. Creatinine Clearance 0 mL/min (70-130); Calcium 10.1 mg/dL (7.8-10.44); Carbon Dioxide 20 mmol/L (22-29); Chloride 105 mmol/L (98-107); Estimated GFR-MDRD 82; Globulin 3.3 g/dL (2.4-3.5); Glucose 208 mg/dL (70-105); Potassium 3.8 mmol/L (3.5-5.1); Protein, Total 7.8 g/dL (6.0-8.3); Salicylate Less than 8.0 mg/dL (15.0-30.0); Sodium 136 mmol/L (136-145)
== END 2018-04-28 06:45 | disposition home or self-care (01) ==
LOC: ERS 02:57
DX: F23 Brief psychotic disorder (principal); K21.9 Gastro-esophageal reflux disease without esophagitis; G43.909 Migraine, unspecified, not intractable, without status migrainosus; F41.9 Anxiety disorder, unspecified; F31.9 Bipolar disorder, unspecified; F17.210 Nicotine dependence, cigarettes, uncomplicated
CPT/HCPCS: 36415; 80053; 80306; 80307; 81003; 82550; 84443; 85025; 93005; 96360; 96361

== ENCOUNTER 2018-06-02 07:10 | Day surgery (SDC) | payer MEDICARE ==
[2018-06-01 14:21] VITALS: BMI 28.0
--- NOTE | 2018-06-02 10:23 | RAD ---
CERVICAL MYELOGRAM: INDICATIONS: Radiculopathy. TECHNIQUE: Informed consent was obtained. Sleep Tech images were obtained. The patient was placed prone on the fluo roscopic table. The site overlying the right L2-L3 level was marked. The site was prepped and drape d in the usual sterile fashion. Buffered 1% Lidocaine was administered to the overlying subcutaneous tissues. Under fluoroscopic guidance, a 22 gauge spinal needle was guided down through the right L2 -L3 interlaminar space, into the thecal sac. There was spontaneous return of normal CSF fluid. Foll owing this, there was administration of 12 mL of an Isovue-M 300 solution within the thecal sac. The inner stylet was placed. The needle was removed. The patient was then placed in the Trendelenburg position, to evaluate migration of contrast to the cervical spinal level. Upon visualization of cont rast at the cervical spinal level, the patient was then placed on a gurney and escorted to the CT iwona te. The patient tolerated the procedure without difficulty. FINDINGS: There is post procedural change of an ACDF spanning C4 through C7. There is posterolateral spinal in strumentation from C4 to C7 on the left. There is an ACDF interbody cage at C4-C5. There is post pr ocedural change of posterolateral interbody fusion at L5-S1. There is multilevel mild disk degenerat jamie disease at the lumbar spine. The visualized bowel gas pattern is unobstructed. The lung apices are clear. IMPRESSION: Successful cervical myelogram. POS: [facility]
--- NOTE | 2018-06-02 13:00 | CT ---
CT CERVICAL MYELOGRAM: INDICATION: History of cervical radiculopathy. TECHNIQUE: Multiple CT images were obtained of the cervical spine following intrathecal administration of dilute Gadolinium solution. Axial, coronal, and sagittal reformatted images were constructed from the raw data. Comparisons are made with the prior CT cervical myelogram dated 07/19/2017. FINDINGS: Since the comparison cervical myelogram, there has been revision of the ACDF with the ACDF plate now spanning C4 through the C7 vertebral level. There are right-sided pedicular screws now present from C4 through C7 with an interconnecting ramirez. There is some mild lucency involving the pedicular screw at C7. The pedicular screw at C6 does enter into the facet joint of C6-7. The pedicular screw at C5 also enters into the facet joint on the right at C5-6. No acute fracture is evident. There is slight anterior translation of C3 on C4 which is stable. The re is improvement in the anterior translation previously seen at C4-C5. At C2-C3, there is no appreciable central canal or neural foraminal narrowing. At C3-4, there is no appreciable central canal or neural foraminal narrowing. At C4-5, there is no appreciable central canal or neural foraminal narrowing. At C5-6, there is some mild residual osteophyte complex and facet degenerative change inducing mild l eft osseous neural foraminal narrowing. This appears stable to the prior exam. At C6-7, there is no appreciable central canal or neural foraminal narrowing. At C7-T1, there is no appreciable central canal or neural foraminal narrowing. At T1-T2, there is no appreciable central canal or neural foraminal narrowing. IMPRESSION: 1. Interval revision of the ACDF with placement of a unilateral posterolateral interbody fusion at C 4 through C7. There is lucency involving the pedicular screw on the right at C7. This does suggest loosening. 2. Mild anterior translation of C3 on C4. 3. Mild stable left neural foraminal narrowing at C5-6. POS: [facility]
[2018-06-02] MEDS ORDERED: Iopamidol-M 300 61% 15 ML VIAL ONE (13:48)
== END 2018-06-02 09:50 | disposition home or self-care (01) ==
LOC: RAD 07:10
PROVIDERS: ATTEND Neurological Surgery
PROC: B01B1ZZ Fluoroscopy of Spinal Cord using Low Osmolar Contrast (ICD-10-PCS; principal; 2018-06-02)
DX: M54.12 Radiculopathy, cervical region (principal); M51.36 Other intervertebral disc degeneration, lumbar region; J45.909 Unspecified asthma, uncomplicated; F31.9 Bipolar disorder, unspecified; F41.9 Anxiety disorder, unspecified; F17.200 Nicotine dependence, unspecified, uncomplicated; K21.9 Gastro-esophageal reflux disease without esophagitis; Z79.51 Long term (current) use of inhaled steroids; Z79.899 Other long term (current) drug therapy; Z88.8 Allergy status to other drugs, medicaments and biological substances; Z91.013 Allergy to seafood; Z91.018 Allergy to other foods; Z98.1 Arthrodesis status; Z98.84 Bariatric surgery status
CPT/HCPCS: 62302; 72126; Q9967